=== PATIENT | female | born 1980 | race Caucasian/White ===

== ENCOUNTER 2017-07-17 15:29 | Outpatient (CLI) | payer BC ==
[~2017-07-17] VITALS: Ht 165.1 cm; Wt 79.5 kg
[~2017-07-17 15:29] MED LIST: LABE100T3 PO; PREN1TAB10 PO
[2017-07-17 15:53] VITALS: BP 141/97
[2017-07-17 16:05] LABS: BASOPHILS # (AUTO) 0.06 x10^3/uL (0-0.1); BASOPHILS % (AUTO) 1 % (0-1); EOSINOPHILS # (AUTO) 0.19 x10^3/uL (0-0.4); EOSINOPHILS % (AUTO) 1 % (1-7); LYMPHOCYTES # (AUTO) 1.81 x10^3/uL (1-3.4); LYMPHOCYTES % (AUTO) 14 % (22-44); MD NO; MEAN CORPUSCULAR HEMOGLOBIN 28.5 pg (27.0-34.8); MEAN CORPUSCULAR HGB CONC 33.6 g/dL (32.4-35.8); MEAN CORPUSCULAR VOLUME 84.8 fL (80-100); MEAN PLATELET VOLUME 9.3 fL (7.4-10.4); MONOCYTES # (AUTO) 0.95 x10^3/uL (0.2-0.8); MONOCYTES % (AUTO) 7 % (2-9); NEUTROPHILS # (AUTO) 10.22 x10^3/uL (1.8-6.8); NEUTROPHILS % (AUTO) 77 % (42-75); PLATELET COUNT 231 x10^3/uL (130-400); RED BLOOD COUNT 4.85 x10^6/uL (3.82-5.3); RED CELL DISTRIBUTION WIDTH 13.4 % (9.6-15.2)
[2017-07-17 16:13] LABS: ALANINE AMINOTRANSFERASE 32 U/L (12-78); ALBUMIN 2.6 g/dL (3.4-5.0); ANION GAP 10 mmol/L (5-15); CALCIUM 8.7 mg/dL (8.5-10.1); CHLORIDE 109 mmol/L (98-107); CREATININE 0.65 mg/dL (0.55-1.02)
[2017-07-17 16:15] LABS: ALKALINE PHOSPHATASE 151 U/L (45-117); BILIRUBIN, DIRECT < 0.1 mg/dL (0.1-0.2); BILIRUBIN,TOTAL 0.4 mg/dL (0.2-1.0); TOTAL PROTEIN 6.5 g/dL (6.4-8.2)
[2017-07-17 17:13] LABS: PROTEIN/CREATININE RATIO,URINE < 256 (0-200); TOTAL PROTEIN,URINE RANDOM < 5 mg/dL (0-12)
[2017-07-17 17:33] LABS: MICROSCOPIC NOT IND
== END 2017-07-17 17:58 | disposition home or self-care (01) ==
LOC: LDOP 15:29
PROVIDERS: ATTEND Obstetrics & Gynecology
DX: O13.3 Gestational [pregnancy-induced] hypertension without significant proteinuria, third trimester (principal); Z3A.36 36 weeks gestation of pregnancy
CPT/HCPCS: 36415; 59025; 80053; 81003; 82248; 82570; 84156; 84550; 85025; 99211; G0463

== ENCOUNTER 2017-07-25 10:58 | Outpatient (CLI) | payer BC | END 2017-07-25 12:20 | disposition home or self-care (01) | LOC: LDOP 10:58 | PROVIDERS: ATTEND Obstetrics & Gynecology | DX: Z34.83 Encounter for supervision of other normal pregnancy, third trimester (principal); Z3A.36 36 weeks gestation of pregnancy | CPT/HCPCS: 59025; 76819; 99211; G0463 ==

== ENCOUNTER 2017-07-27 16:27 | Inpatient (IN) | payer BC ==
[~2017-07-27] VITALS: Ht 165.1 cm; Wt 93.8 kg
[2017-07-27] MEDS ORDERED: LACTATED RINGERS 1,000 ML IV SCH (18:05)
[2017-07-27] MEDS ORDERED: LACTATED RINGERS 1,000 ML IVBOLUS ONE (18:30)
[2017-07-27] MEDS ORDERED: METOCLOPRAMIDE 5 MG/ML, 2ML IV ONE (18:30)
[2017-07-27] MEDS ORDERED: ONDANSETRON 2MG/ML, 2ML IVPush ONE (18:30)
[2017-07-27] MEDS ORDERED: SODIUM CITRATE/CITRIC ACID 30 ML UDC PO ONE (18:30)
[2017-07-27] MEDS ORDERED: CALCIUM CARBONATE 500 MG TAB.CHEW PO PRN (18:30)
[2017-07-27] MEDS ORDERED: CEFAZOLIN PMX 1GM/50ML 50 ML IVPB ONE (18:30)
[2017-07-27 18:38] LABS: BASOPHILS # (AUTO) 0.04 x10^3/uL (0-0.1); BASOPHILS % (AUTO) 0 % (0-1); EOSINOPHILS # (AUTO) 0.18 x10^3/uL (0-0.4); EOSINOPHILS % (AUTO) 2 % (1-7); LYMPHOCYTES # (AUTO) 1.81 x10^3/uL (1-3.4); LYMPHOCYTES % (AUTO) 17 % (22-44); MD NO; MEAN CORPUSCULAR HEMOGLOBIN 29.3 pg (27.0-34.8); MEAN CORPUSCULAR HGB CONC 34.2 g/dL (32.4-35.8); MEAN CORPUSCULAR VOLUME 85.6 fL (80-100); MEAN PLATELET VOLUME 9.3 fL (7.4-10.4); MONOCYTES # (AUTO) 0.75 x10^3/uL (0.2-0.8); MONOCYTES % (AUTO) 7 % (2-9); NEUTROPHILS # (AUTO) 7.66 x10^3/uL (1.8-6.8); NEUTROPHILS % (AUTO) 73 % (42-75); PLATELET COUNT 227 x10^3/uL (130-400); RED BLOOD COUNT 4.76 x10^6/uL (3.82-5.3); RED CELL DISTRIBUTION WIDTH 13.2 % (9.6-15.2)
[2017-07-27 18:48] LABS: ALBUMIN 2.5 g/dL (3.4-5.0); ANION GAP 8 mmol/L (5-15); CALCIUM 8.8 mg/dL (8.5-10.1); CHLORIDE 110 mmol/L (98-107)
[2017-07-27 18:53] LABS: ALANINE AMINOTRANSFERASE 26 U/L (12-78); ALKALINE PHOSPHATASE 152 U/L (45-117); BILIRUBIN,TOTAL 0.8 mg/dL (0.2-1.0); CREATININE 0.74 mg/dL (0.55-1.02); TOTAL PROTEIN 6.3 g/dL (6.4-8.2)
[2017-07-27 18:57] LABS: BILIRUBIN, DIRECT < 0.1 mg/dL (0.1-0.2)
[2017-07-27] MEDS ORDERED: LABETALOL 200 MG TABLET ONE (20:45)
[2017-07-27] MEDS: LABETALOL 200 MG TABLET PO SCH (20:48)
[2017-07-27] MEDS ORDERED: NEWBORN KIT ONE (22:08)
[2017-07-27] MEDS ORDERED: SODIUM CITRATE/CITRIC ACID 30 ML UDC ONE (22:08)
[2017-07-27] MEDS ORDERED: OXYTOCIN 30U/ 0.9% NaCL 500ML 500 ML ONE (22:09)
[2017-07-27] MEDS ORDERED: METOCLOPRAMIDE 5 MG/ML, 2ML ONE (22:09)
[2017-07-27 22:13] LABS: MICROSCOPIC NOT IND
[2017-07-27 22:47] LABS: PROTEIN/CREATININE RATIO,URINE < 103 (0-200); TOTAL PROTEIN,URINE RANDOM < 5 mg/dL (0-12)
[2017-07-28] MEDS: OXYTOCIN 30U/ 0.9% NaCL 500ML 500 ML IV SCH ×4 (04:05→17:35)
[2017-07-28] MEDS ORDERED: LACTATED RINGERS 1,000 ML IV SCH ×2 (05:00→05:35)
[2017-07-28] MEDS ORDERED: SODIUM CITRATE/CITRIC ACID 30 ML UDC PO ONE (06:00)
[2017-07-28] MEDS ORDERED: METOCLOPRAMIDE 5 MG/ML, 2ML IV ONE (06:00)
[2017-07-28] MEDS ORDERED: LACTATED RINGERS 1,000 ML IVBOLUS ONE (06:00)
[2017-07-28] MEDS ORDERED: MISOPROSTOL 200 MCG TABLET ONE (07:24)
[2017-07-28] MEDS ORDERED: hydrALAzine 20 MG/ML, 1ML IV PRN (07:30)
[2017-07-28] MEDS ORDERED: HYDROmorphone 1 MG/ML, 1ML IV PRN (07:30)
[2017-07-28] MEDS ORDERED: MEPERIDINE/PF 25MG/0.5ML IVPush PRN (07:30)
[2017-07-28] MEDS ORDERED: ALBUTEROL/IPRATROPIUM 2.5MG/0.5MG, 3 ML NPPB PRN (07:30)
[2017-07-28] MEDS ORDERED: LABETALOL 5MG/ML, 20ML IV PRN (07:30)
[2017-07-28] MEDS ORDERED: ONDANSETRON 2MG/ML, 2ML IVPush PRN (07:30)
[2017-07-28] MEDS ORDERED: PROMETHAZINE 25 MG/ML, 1ML IV PRN (07:30)
[2017-07-28] MEDS ORDERED: HYDROcodone/APAP 7.5-325MG/15ML UDC PO PRN (07:30)
[2017-07-28] MEDS ORDERED: FENTANYL PF 100 MCG/2ML IV PRN (07:30)
[2017-07-28] MEDS ORDERED: MIDAZOLAM 1 MG/ML, 2ML IV PRN (07:30)
[2017-07-28] MEDS ORDERED: EPHEDRINE 50 MG/ML, 1ML IVPush PRN (07:30)
[2017-07-28] MEDS ORDERED: OXYcodone 5 MG/5 ML ORAL.SOL UDC PO PRN (07:30)
[2017-07-28] MEDS ORDERED: DEXAMETHASONE 4 MG/ML, 1ML ONE (07:33)
[2017-07-28] MEDS ORDERED: PHENYLEPHRINE 10 MG/ML ONE (07:33)
[2017-07-28] MEDS ORDERED: ONDANSETRON 2MG/ML, 2ML ONE (07:33)
[2017-07-28] MEDS ORDERED: KETOROLAC 30 MG/1 ML ONE (07:33)
[2017-07-28] MEDS ORDERED: CEFAZOLIN 1,000 MG ONE (07:33)
[2017-07-28] MEDS ORDERED: EPHEDRINE 50 MG/ML, 1ML ONE (07:33)
[2017-07-28] MEDS ORDERED: FENTANYL PF 100 MCG/2ML ONE (07:33)
[2017-07-28] MEDS ORDERED: OXYTOCIN 10 UNITS/ML, 1ML ONE ×2 (07:33)
[2017-07-28] MEDS: LACTATED RINGERS 1,000 ML IV SCH ×5 (07:35→23:35)
[2017-07-28] MEDS ORDERED: CARBOPROST TROMETHAMINE 250 MCG/ML, 1ML IM PRN (08:00)
[2017-07-28] MEDS ORDERED: ONDANSETRON 2MG/ML, 2ML IV PRN (08:00)
[2017-07-28] MEDS ORDERED: MISOPROSTOL 200 MCG TABLET PR PRN (08:00)
[2017-07-28] MEDS ORDERED: ACETAMINOPHEN 325 MG TABLET PO PRN ×2 (08:00)
[2017-07-28] MEDS ORDERED: morphine SULFATE 10 MG/ML, 1ML IVPush PRN ×2 (08:00)
[2017-07-28] MEDS: PRENATAL VIT/IRON/FA 1 EACH TABLET PO SCH (09:00)
[2017-07-28] MEDS ORDERED: MISOPROSTOL 200 MCG TABLET PR ONE (10:00)
[2017-07-28 11:20] VITALS: BP 124/84
[2017-07-28] MEDS: OXYcodone/APAP 5/325MG TABLET PO PRN ×3 (14:22→23:36)
[2017-07-28 15:00] VITALS: BP 125/89
[2017-07-28 16:33] LABS: BASOPHILS % (AUTO) 0 % (0-1); EOSINOPHILS % (AUTO) 0 % (1-7); LYMPHOCYTES # (AUTO) 0.78 x10^3/uL (1-3.4); LYMPHOCYTES % (AUTO) 5 % (22-44); MEAN CORPUSCULAR HEMOGLOBIN 28.8 pg (27.0-34.8); MEAN CORPUSCULAR HGB CONC 33.4 g/dL (32.4-35.8); MEAN CORPUSCULAR VOLUME 86.1 fL (80-100); MEAN PLATELET VOLUME 8.9 fL (7.4-10.4); MONOCYTES # (AUTO) 0.58 x10^3/uL (0.2-0.8); MONOCYTES % (AUTO) 4 % (2-9); NEUTROPHILS # (AUTO) 15.35 x10^3/uL (1.8-6.8); NEUTROPHILS % (AUTO) 92 % (42-75); PLATELET COUNT 211 x10^3/uL (130-400); RED BLOOD COUNT 4.41 x10^6/uL (3.82-5.3); RED CELL DISTRIBUTION WIDTH 13.7 % (9.6-15.2)
[2017-07-28 16:34] LABS: MD NO
[2017-07-28] MEDS: LABETALOL 200 MG TABLET PO SCH (18:00)
[2017-07-28 20:00] VITALS: BP 132/82
[2017-07-29 00:02] VITALS: BP 142/84
[2017-07-29] MEDS: OXYTOCIN 30U/ 0.9% NaCL 500ML 500 ML IV SCH ×2 (03:35→13:35)
[2017-07-29] MEDS: LACTATED RINGERS 1,000 ML IV SCH ×4 (03:35→15:35)
[2017-07-29 03:39] VITALS: BP 146/90
[2017-07-29] MEDS: OXYcodone/APAP 5/325MG TABLET PO PRN ×4 (03:57→20:04)
[2017-07-29 05:33] VITALS: BP 143/85
[2017-07-29] MEDS: LABETALOL 200 MG TABLET PO SCH ×3 (05:41→18:06)
[2017-07-29 07:45] VITALS: BP 128/81
[2017-07-29] MEDS: IBUPROFEN 600 MG TABLET PO PRN ×2 (08:45→20:04)
[2017-07-29] MEDS: PRENATAL VIT/IRON/FA 1 EACH TABLET PO SCH (08:45)
[2017-07-29 18:08] VITALS: BP 126/83
[2017-07-29 19:40] VITALS: BP 131/91
[2017-07-30] MEDS: IBUPROFEN 600 MG TABLET PO PRN ×3 (02:00→15:45)
[2017-07-30] MEDS: OXYcodone/APAP 5/325MG TABLET PO PRN ×5 (02:00→20:40)
[2017-07-30 06:00] VITALS: BP 123/81
[2017-07-30] MEDS: LABETALOL 200 MG TABLET PO SCH ×2 (06:02→17:48)
[2017-07-30 07:30] VITALS: BP 114/75
[2017-07-30] MEDS ORDERED: DOCUSATE 100 MG CAPSULE ONE (08:21)
[2017-07-30] MEDS: PRENATAL VIT/IRON/FA 1 EACH TABLET PO SCH (08:22)
[2017-07-30 17:55] VITALS: BP 137/92
[2017-07-30 20:45] VITALS: BP 144/86
[2017-07-31] MEDS: OXYcodone/APAP 5/325MG TABLET PO PRN ×3 (00:40→09:52)
[2017-07-31 00:41] VITALS: BP 146/91
[2017-07-31] MEDS: LABETALOL 200 MG TABLET PO SCH (06:07)
[2017-07-31] MEDS ORDERED: OXYC-302 PO (09:09)
[2017-07-31] MEDS ORDERED: IBUP-1222 PO (09:09)
[2017-07-31] MEDS ORDERED: SENN-1 PO (09:09)
[2017-07-31 09:50] VITALS: BP 130/83
[2017-07-31] MEDS ORDERED: DOCUSATE 100 MG CAPSULE ONE (09:51)
[2017-07-31] MEDS: IBUPROFEN 600 MG TABLET PO PRN (09:52)
[2017-07-31] MEDS: PRENATAL VIT/IRON/FA 1 EACH TABLET PO SCH (09:53)
== END 2017-07-31 13:20 | disposition home or self-care (01) | DRG 766 ==
LOC: LDOP 16:27 → LDIP 18:06 → 2NW 07-28 11:05
PROVIDERS: ADMIT Obstetrics & Gynecology; ATTEND Obstetrics & Gynecology
PROC: 10D00Z1 Extraction of Products of Conception, Low, Open Approach (ICD-10-PCS; principal; 2017-07-28)
DX: O76 Abnormality in fetal heart rate and rhythm complicating labor and delivery (principal); O16.4 Unspecified maternal hypertension, complicating childbirth; K66.0 Peritoneal adhesions (postprocedural) (postinfection); O99.62 Diseases of the digestive system complicating childbirth; O34.211 Maternal care for low transverse scar from previous cesarean delivery; O36.8130 Decreased fetal movements, third trimester, not applicable or unspecified; O77.0 Labor and delivery complicated by meconium in amniotic fluid; O69.1XX0 Labor and delivery complicated by cord around neck, with compression, not applicable or unspecified; Z37.0 Single live birth; Z3A.38 38 weeks gestation of pregnancy
CPT/HCPCS: 36415; 76819; 80053; 81003; 82248; 82570; 82803; 84156; 84550; 85025; 88307; J0690; J1100; J1885; J2405; J3010; J2370; J2590; J2765; J7120